=== PATIENT | male | born 1965 | race Caucasian/White ===

== ENCOUNTER → 2016-08-23 | Outpatient (CLI) | payer OTHER | LOC: FIMAGING 07:46 | PROVIDERS: ATTEND Family Medicine | DX: R10.9 Unspecified abdominal pain (principal) ==

== ENCOUNTER 2017-11-23 05:39 | Day surgery (SDC) | payer OTHER ==
--- NOTE | 2017-11-23 05:47 | POSTANESTH ---
Post Anesthetic Evaluation Cardiovascular Status: Normal, Stable Respiratory Status: Normal, Stable Level of Consciousness/Mental Status: Can Participate in Eval, Mildly Sleepy, Arousable Pain Control: Adequate, Prn Tx Ordered Nausea/Vomiting Control: Adequate, Prn Tx Ordered Complications Possibly Related to Anesthesia: None Noted
--- NOTE | 2017-11-23 05:49 | PDANEPAE ---
ANE History of Present Illness 52 yo male for open repair of ventral hernia and B IH repair. ANE Past Medical History - Cardiovascular History Hx Hypertension: No Hx Arrhythmias: No Hx Chest Pain: No Hx Coronary Artery / Peripheral Vascular Disease: No Hx CHF / Valvular Disease: No Hx Palpitations: No Cardiovascular History Comment: high chol- on statin - Pulmonary History Hx COPD: No Hx Asthma/Reactive Airway Disease: No Hx Recent Upper Respiratory Infection: No Hx Oxygen in Use at Home: No Hx Sleep Apnea: No Sleep Apnea Screening Result - Last Documented: Negative Pulmonary History Comment: gets congested sometimes with allergies - Neurologic History Hx Cerebrovascular Accident: No Hx Seizures: No Hx Dementia: No - Endocrine History Hx Diabetes: No Hypothyroid: Yes Obesity: no Endocrine History Comment: hypothyroidism - Renal History Hx Renal Disorders: No - Liver History Hx Hepatic Disorders: No - Neurological & Psychiatric Hx Hx Neurological and Psychiatric Disorders: No - Cancer History Hx Cancer: No - Congenital Disorder History Hx Congenital Disorders: No - GI History Hx Gastrointestinal Disorders: Yes Gastrointestinal History Comment: hx of hemorrhoidectomy. hx of multiple colonscopies - Other Health History Other Health History: wears reading glasses - Chronic Pain History Chronic Pain: No - Surgical History Prior Surgeries: multiple colonoscopies. hemorrhoidectomy over 10 yrs ago ANE Review of Systems Review of Systems: - Exercise capacity METS (RN): 4 METS - Systems Constitutional: Reports: no symptoms EENMT: Reports: nose congestion (allergies) Cardiac: Reports: no symptoms Respiratory: Reports: no symptoms ANE Patient History - Allergies Allergies/Adverse Reactions: erythromycin lactobionate [From Erythrocin] Allergy (Verified 11/23/17 06:26) hasn't had since child- caused hives - Home Medications Home Medications: Levothyroxine [Synthroid 50 mcg (*)] 01/26/12 [Last Taken 11/23/17 0200] Simvastatin [Zocor 20 mg] 01/26/12 [Last Taken 11/22/17 18:30] Claritin 11/14/17 [Last Taken Unknown] Herbals/Supplements -Info Only 11/14/17 [Last Taken Unknown] - NPO status NPO Status: no food or drink >8 hours - Anes Hx Anes Hx: post operative nausea and vomiting (once after colonoscopy many years ago, none recently) - Smoking Hx Smoking Status: Never smoked Marijuana use: No - Alcohol Use Alcohol Use: Occasionally (2/week) - Family Anes Hx Family Anes Hx: neg - N/A Family Hx Anesthesia Complications: none ANE Labs/Vital Signs - Vital Signs Vital Signs: reviewed preoperatively; see RN documention for details Height: 172.72 cm Weight: 65.771 kg ANE Physical Exam - Airway Neck exam: FROM Mallampati Score: Class 2 Mouth exam: normal dental/mouth exam - Pulmonary Pulmonary: clear to auscultation - Cardiovascular Cardiovascular: regular rate and rhythym, bradycardia - ASA Status ASA Status: II ANE Anesthesia Plan Anesthesia Plan: general endotracheal anesthesia
[2017-11-23] MEDS ORDERED: LIDOCAINE 1% 2 ML INJ ID PRN (06:07)
[2017-11-23] MEDS ORDERED: ceFAZolin 2 GM/DEXTROSE 100 ML IV ONE (06:07)
[2017-11-23] MEDS ORDERED: LR 1,000 ML IV ONE (06:07)
--- NOTE | 2017-11-23 07:05 | PDHPUP ---
History & Physical Update H&P update statement: This history and physical update is based on an assessment of the patient which was completed after admission or registration (within 24 hours), but prior to the surgery/procedure. H&P update: H&P reviewed & patient examined, no change in patient's condition since H&P completed
[2017-11-23] MEDS ORDERED: BUPIVACAINE 0.25% 30 ML SDV ONE (07:06)
[2017-11-23] MEDS ORDERED: LIDOCAINE 2% 5 ML SDV ONE (07:09)
[2017-11-23] MEDS ORDERED: ROCURONIUM 100 MG/10 ML VIAL ONE (07:09)
[2017-11-23] MEDS ORDERED: DEXAMETHASONE 4 MG/ML VIAL ONE (07:09)
[2017-11-23] MEDS ORDERED: PROPOFOL/EMULSION 500 MG/50 ML BOTTLE IV ONE (07:10)
[2017-11-23] MEDS ORDERED: fentaNYL 100 MCG/2 ML INJ ONE ×2 (07:10)
[2017-11-23] MEDS ORDERED: KETOROLAC 30 MG/1 ML SDV ONE (07:50)
[2017-11-23] MEDS ORDERED: ONDANSETRON 4 MG/2 ML VIAL ONE (07:50)
[2017-11-23] MEDS ORDERED: ALBUTEROL 3 ML DEYVIAL IH PRN (08:18)
[2017-11-23] MEDS ORDERED: PROMETHAZINE HCL 25 MG/ML INJ IVP PRN (08:18)
[2017-11-23] MEDS ORDERED: NALOXONE HCL 0.4 MG/ML INJ IVP PRN (08:18)
[2017-11-23] MEDS ORDERED: HYDROCODONE/APAP 5/325 TAB PO PRN (08:18)
[2017-11-23] MEDS ORDERED: fentaNYL 100 MCG/2 ML INJ IVP PRN (08:18)
[2017-11-23] MEDS ORDERED: LR 500 ML IV PRN (08:18)
[2017-11-23] MEDS ORDERED: ACETAMINOPHEN 500 MG TAB PO PRN (08:18)
[2017-11-23] MEDS ORDERED: NEOSTIGMINE METHYLSULFATE 3 MG/3 ML SYR ONE (08:19)
--- NOTE | 2017-11-23 08:32 | POSTOPPROG ---
Post Op Note Date of Operation: 11/23/17 Surgeon: Shital Navarro Anesthesiologist: blanca Anesthesia: GET(General Endotracheal) Pre-op Diagnosis: bih ventral Post-op Diagnosis: lap bih lap ventral Indication: 52 yo with bulge above umbilicus and inguinal hernias Procedure: lap bih umbilical hernia repair with mesh Findings: b indirect, incarcerated omentum Inf/Abcess present in the surg proc area at time of surgery?: No EBL: Minimal Specimen(s): none
[2017-11-23] MEDS ORDERED: ALBUTEROL 3 ML DEYVIAL ONE (08:46)
--- NOTE | 2017-11-23 08:59 | GOP ---
[f rep st] OPERATIVE REPORT DATE OF OPERATION: 11/23/2017 SURGEON: Shital Navarro MD ANESTHESIA: Madelnie Booth MD/General. PREOPERATIVE DIAGNOSIS: Ventral hernia and inguinal hernias. POSTOPERATIVE DIAGNOSIS: Bilateral initial indirect inguinal hernia and incarcerated umbilical herni a. PROCEDURE PERFORMED: FINDINGS: Bilateral indirect inguinal hernias, incarcerated omentum at the umbilicus. SPECIMENS: None. ESTIMATED BLOOD LOSS: 5 cc. INDICATIONS: The patient is a 52-year-old with a bulge above his umbilicus and inguinal hernias. DESCRIPTION OF PROCEDURE: Patient was brought into the operating room, placed supine on the table. General anesthesia was administered. His abdomen and groin were prepped and draped in the usual ster ile fashion. I infiltrated all sites with 0.5% Marcaine prior to making incisions. I made an incisi on beneath his umbilicus. I dissected down through the subcutaneous tissues until I encountered the anterior rectus sheath. I divided this. I swept his rectus muscles laterally and I directed the bal loon tip trocar directed toward his pubis. I performed hand insufflation with the camera in place. I then exchanged this for the working balloon. He was placed in the Trendelenburg position. I place d an additional 2, 5 mm trocars, 1 at the pubis and 1 in between the 1st and 2nd trocars. I identifi ed his pubis. I cleaned it from investing tissues. I identified the cord and cord structures and re duced the sac from the cord and cord structures. I created a space laterally to accommodate the mesh . I kept the inferior epigastric vessels anterior to the plane. I placed a piece of self-fixating P roGrip mesh to cover the direct, indirect, and femoral spaces. On the left side I performed a simila r fashion. There was a small breach in the peritoneum where 2 hemoclips were applied. Again, I plac ed a piece of self-fixating ProGrip mesh to cover the direct, indirect, and femoral spaces. This was tacked to the pubis and anteriorly. The preperitoneal space was allowed to desufflate and the ports removed under direct vision. Next, I came around the umbilicus with a hemostat. I divided it from the fascia and there was immediately a large amount of omentum. I excised this. I cleared the fasci a above and below the peritoneum. I closed the fascia with 0 Surgilon. I placed a piece of mesh soha t I had saved from the inguinal hernia repair at the umbilicus and I sutured it in place with 0 Surgi ben. I created a jay-umbilicus with 3-0 Vicryl. I closed the skin with 4-0 Monocryl. Dermabond bennie lied to the lower incisions. Steri-Strips, cotton ball, and a sterile dressing applied to the umbili cus. He was awakened in the operating room, extubated and transferred to PACU in stable condition. /[id number]/MODL
[2017-11-23] MEDS ORDERED: HYDROCODONE/APAP 5/325 TAB ONE (10:24)
[2017-11-23 12:42] VITALS: BP 117/77
== END 2017-11-23 13:20 | disposition home or self-care (01) ==
LOC: FSGY 05:39
PROVIDERS: ATTEND Surgery
DX: K40.20 Bilateral inguinal hernia, without obstruction or gangrene, not specified as recurrent (principal); K42.0 Umbilical hernia with obstruction, without gangrene; E78.5 Hyperlipidemia, unspecified; E03.9 Hypothyroidism, unspecified
CPT/HCPCS: C1781; J0690; J1100; J1885; J2405; J2704; J2710; J3010; J7613